=== PATIENT | male | born 1960 | race Two or more races ===

== ENCOUNTER 2019-03-07 07:48 | Emergency (ER) | payer OTHER ==
[~2019-03-07] VITALS: Ht 167.6 cm; Wt 78.5 kg
[2019-03-07 08:05] VITALS: BP 135/71
--- NOTE | 2019-03-07 08:11 | NUR ---
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 patient reports pain 9/10, sharp. Patient is alert awake x4 ambulatory steady gait, breathing unlabored and even.
--- NOTE | 2019-03-07 08:13 | Emergency Room Report ---
History of Present Illness General Chief Complaint: Pain Source: Patient Present Illness HPI 58 Old male presents with left shoulder pain, left hip pain after lifting a patient on 03/06/2019, patient states he has achy left shoulder pain worsened with movement alleviated with rest as well as left hip pain with the same exact aggravating relieving factors, severity is moderate. denies any chest pain shortness of breath. Allergies: Coded Allergies: No Known Allergies (Unverified , 03/07/19) Patient History Past Medical History: see triage record Reviewed Nursing Documentation: PMH: Agreed; PSxH: Agreed Nursing Documentation-PMH Hx Diabetes: Yes Review of Systems All Other Systems: negative except mentioned in HPI Physical Exam Vital Signs Date Time Temp Pulse Resp B/P (MAP) Pulse Ox O2 Delivery O2 Flow Rate FiO2 03/07/19 08:05 98.8 89 18 135/71 (92) 95 Room Air Sp02 EP Interpretation: reviewed, normal General Appearance: well appearing, no apparent distress, alert Head: normocephalic, atraumatic Eyes: bilateral eye PERRL, bilateral eye EOMI ENT: uvula midline, moist mucus membranes Neck: supple, thyroid normal, supple/symm/no masses Respiratory: lungs clear, no respiratory distress, no retraction, no accessory muscle use Cardiovascular #1: normal peripheral pulses, regular rate, rhythm, no edema, no gallop, no murmur Gastrointestinal: non tender, soft, no guarding, no rebound Musculoskeletal: other - Left shoulder tender to palpation, range of motion is intact however patient has pain with empty can test, patient also has pain to palpation left hip, patient is able to range the left hip however there is pain with movement no obvious fracture deformity Neurologic: alert, oriented x3 Psychiatric: mood/affect normal Skin: no rash, warm/dry Medical Decision Making Diagnostic Impression: Primary Impression: Left shoulder strain Qualified Codes: S46.912A - Strain of unspecified muscle, fascia and tendon at shoulder and upper arm level, left arm, initial encounter Additional Impression: Strain of left hip Qualified Codes: S76.012A - Strain of muscle, fascia and tendon of left hip, initial encounter ER Course 58-year-old male presents with most likely left hip left shoulder strain after lifting a heavy patient, patient denies any chest pain or shortness of breath, on the differential is muscle strain, fracture, ligament strain, patient will need a week off of work and will require light duty, disposition home with return precautions anti-inflammatories provided Last Vital Signs Date Time Temp Pulse Resp B/P (MAP) Pulse Ox O2 Delivery O2 Flow Rate FiO2 03/07/19 08:05 98.8 89 18 135/71 (92) 95 Room Air Disposition: HOME, SELF-CARE Condition: Stable Scripts Methocarbamol* (ROBAXIN-750*) 750 Mg Tablet 750 MG PO QID, #28 TAB 0 Refills Prov: Vickey Alcaraz MD 03/07/19 Naproxen* (NAPROSYN*) 250 Mg Tablet 250 MG ORAL BID PRN for For Pain, #20 TAB 0 Refills Prov: Vickey Alcaraz MD 03/07/19 [address]errals: [facility] Eddie Wong. [facility] Departure Forms: Return to Work Return to Work Date: Mar 15, 2019 Patient Instructions: Hamstring Strain, Muscle Strain, [id number], Shoulder Pain, [id number], Shoulder Range of Motion Exercises Additional Instructions: The patient was provided with discharge instructions, notified to follow-up with a primary care doctor and or specialist in the next 24-48 hours, and to return to the ED if they have worsening of their symptoms. Please note that this report is being documented using [employer] technology. This can lead to erroneous entry secondary to incorrect interpretation by the dictating instrument. Vickey Alcaraz MD Mar 07, 2019 08:13
[2019-03-07] MEDS ORDERED: Acetaminophen 500mg (ES) tab ORAL ONE (08:15)
[2019-03-07] MEDS ORDERED: NAPROXEN250 MG ORAL (08:22)
[2019-03-07] MEDS ORDERED: ROBAXIN-750750 MG PO (08:22)
[2019-03-07 09:07] VITALS: BP 135/71
--- NOTE | 2019-03-07 09:07 | NUR ---
ER DISCHARGE NOTE: Patient is cleared to be discharged per ERMD DR PEÑALOZA, pt is aox4, on room air, with stable vital signs. pt was given dc and prescription instructions, pt was able to verbalize understanding, pt id band removed without complications. pt is able to ambulate with steady gait. pt took all belongings.
== END 2019-03-07 09:07 | disposition home or self-care (01) ==
LOC: EMR 08:00
DX: S46.912A Strain of unspecified muscle, fascia and tendon at shoulder and upper arm level, left arm, initial encounter (principal); S76.012A Strain of muscle, fascia and tendon of left hip, initial encounter; E11.9 Type 2 diabetes mellitus without complications; X50.9XXA Other and unspecified overexertion or strenuous movements or postures, initial encounter; Y93.F2 Activity, caregiving, lifting; Y92.89 Other specified places as the place of occurrence of the external cause; Y99.0 Civilian activity done for income or pay
CPT/HCPCS: 99282